=== PATIENT | female | born 1970 | race Caucasian/White ===

== ENCOUNTER 2019-06-04 22:15 | Emergency (ER) | payer SELFPAY ==
[~2019-06-04] VITALS: Ht 142.2 cm; Wt 54.5 kg
[2019-06-05] MEDS ORDERED: PERTUSS(ACELL),DIPH,TET VAC/PF 0.5 ML VIAL IM ONE
[2019-06-05 01:29] VITALS: BP 129/81
[2019-06-05] MEDS ORDERED: LIDOCAINE/PF 1% 2 ML VIAL INJ ONE (01:30)
[2019-06-05] MEDS ORDERED: BACITRACIN 0.9 GM PACKET OINTMENT TP ONE (02:21)
== END 2019-06-05 02:15 | disposition home or self-care (01) ==
LOC: EMS 22:16
DX: S61.210A Laceration without foreign body of right index finger without damage to nail, initial encounter (principal); W25.XXXA Contact with sharp glass, initial encounter; Y93.89 Activity, other specified; Y92.89 Other specified places as the place of occurrence of the external cause; Y99.8 Other external cause status
CPT/HCPCS: 12002; 73140; 90471; 90715; 99283; J3490